=== PATIENT | female | born 1980 | race Caucasian/White ===

== ENCOUNTER → 2018-01-30 | Outpatient (CLI) | payer OTHER | LOC: FIMAGING 10:24 | PROVIDERS: ATTEND Hospitalist | DX: O09.522 Supervision of elderly multigravida, second trimester (principal); Z3A.13 13 weeks gestation of pregnancy ==

== ENCOUNTER → 2018-03-13 | Outpatient (CLI) | payer OTHER | LOC: FIMAGING 09:15 | PROVIDERS: ATTEND Hospitalist | DX: O09.522 Supervision of elderly multigravida, second trimester (principal); Z3A.19 19 weeks gestation of pregnancy ==

== ENCOUNTER 2018-07-29 16:09 | Inpatient (IN) | payer OTHER ==
[2018-07-29] MEDS ORDERED: OLIVE OIL 118 ML BTL MISC PRN (16:44)
[2018-07-29] MEDS ORDERED: LIDOCAINE 1% 300 MG/30 ML SDV SC PRN (16:44)
[2018-07-29] MEDS ORDERED: EPSOM SALT 454 GM TP PRN (16:44)
[2018-07-29] MEDS ORDERED: TERBUTALINE SULFATE 1 MG/ML VIAL IV PRN (16:44)
[2018-07-29] MEDS ORDERED: MISOPROSTOL 200 MCG TAB PR PRN (16:44)
[2018-07-29] MEDS ORDERED: LR 1,000 ML IV PRN (16:44)
[2018-07-29] MEDS ORDERED: IBUPROFEN 600 MG TAB PO PRN (16:44)
[2018-07-29] MEDS ORDERED: OXYTOCIN/RINGERS LACTATE 1,000 ML IV PRN (16:44)
[2018-07-29] MEDS ORDERED: TERBUTALINE SULFATE 1 MG/ML VIAL ONE (17:41)
[2018-07-29] MEDS ORDERED: AMMONIA AROMATIC 1 EACH AMP IH ONE (17:41)
[2018-07-29] MEDS ORDERED: LIDOCAINE 1% 300 MG/30 ML SDV ONE (17:41)
[2018-07-29] MEDS ORDERED: OLIVE OIL 118 ML BTL ONE (17:41)
[2018-07-29] MEDS ORDERED: MISOPROSTOL 200 MCG TAB ONE (17:42)
[2018-07-29] MEDS ORDERED: OXYTOCIN 10 UNIT/ML VIAL ONE (17:42)
[2018-07-29] MEDS ORDERED: HYDROCORTISONE 0.5% CREAM TP PRN (19:05)
[2018-07-29] MEDS ORDERED: SIMETHICONE 80 MG TAB CHEW PO PRN (19:05)
--- NOTE | 2018-07-29 19:06 | PDGENHP ---
History and Physical History and Physical: Care: [facility] HPI: Desirae Rodriguez is a 38yo with IUP @ 38-6 weeks that presents to L&D with complaints of contractions since this afternoon. She denies any LOF, VB. She reports +FM. She is rating pain with contractions 04/01. EDC: 08/06/18 which is based on LMP: 10/30/17 which is known and consistent with Ultrasound at 7 weeks. Her is complicated by: AMA Review of Systems: Constitutional: Denies any fever, chills, or fatigue HEENT: denies any visual changes, difficulty swallowing, hearing loss Cardiovascular: Denies any chest pain, palpitations, leg swelling Respiratory: denies any cough, wheezing, or shortness of breathe GI: Denies any nausea, vomiting, diarrhea, constipation : denies any dysuria, urgency, frequency, vaginal bleeding Musculoskeletal: denies any muscle or bone pain Skin: denies any rashes Neuro: denies any headache, seizures, lightheadedness, dizziness, or loss of consciousness Psychiatric: denies any depression, anxiety, or SI/HI thoughts HISTORY: Previous OB history: EAB Past medical history: none Past surgical history: oral surgery Social: Denies any alcohol, tobacco, or drug use. Family history: Not relevant Medications: PNV, vitamin K, vitamin K, DHA, topical magnesium Allergies (list reaction): NKDA LABS: Rh: A+ ABS: Neg Rubella: Immune HbsAg: NR HIV: NR VDRL: NR 1hr: 73 GC: Neg Chlamydia: Neg Pap: Normal GBS: negative PHYSICAL EXAM: Constitutional: WN, A&Ox3 HEENT: normocephalic atraumatic, supple Skin: Warm, dry, intact Heart: RRR, no murmur Chest: CTA-B Abdomen: Soft, nontender, gravid SVE: 5/90/-2 Extremities: edema, negative homans sign Neuro: grossly normal Psych: normal affect assessment: FHT baseline 135 +accels, no decels, moderate variability Contractions: toco q 2 Assessment: 1) [id number] with IUP@ 38-6wks 2) active labor 3) GBS negative 4) Cat 1 FHR tracing Plan: 1) Admit to L&D 2) expectant management 3) anticipate Today's visit was approximately 30min, of which >50% of visit 20 min, was spent face to face with pt on direct counseling/coordination of care.
--- NOTE | 2018-07-29 19:40 | OBDEL ---
Info Type: Vaginal Presentation at Delivery: Vertex L&D Analgesia/Anesthesia Type: None GBS+: No Intrapartum Medications: Discontinued Medications Generic Name Dose Route Start Last Admin Trade Name Ludy PRN Reason Stop Dose Admin Ibuprofen 600 mg 07/29/18 16:44 07/29/18 19:13 Motrin PO 600 mg ONCE PRN Administration post , pain Indications for Delivery: Spontaneous Labor, SROM Vaginal Delivery - Delivery Provider Delivery Physician/CNM: Daisy Portillo - Labor and Delivery Onset of Contractions Date: 07/29/18 Onset of Contractions Time: 12:00 Onset of Contractions Type: Spontaneous Rupture of Membranes Date: 07/29/18 Rupture of Membranes Type: Spontaneous Amniotic Fluid Color: Clear Dilation Complete Date: 07/29/18 Placenta Delivery Date: 07/29/18 Placenta Delivery Time: 18:38 Total Hours of Labor: 6 Laceration: 2nd Degree Repair: 3-0, Vicryl Vaginal Sponge Count Correct: Yes Vaginal Needle Count Correct: Yes Vaginal Sweep Performed: Yes EBL: 250 Delivery Events: Other (Specify) (body/shoulder cord) Delivery Comment: mom delivered on hands/knees [place] Data MAGGIE: 08/06/18 Gestational Age: 38 week(s) and 6 day(s) [place] Delivery Date: 07/29/18 Delivery Time: 18:21 Sex of : Male Score (1 Min): 8 Score (5 Min): 9 ICD10 Worksheet Patient Problems: Problems Problem Status Onset Labor and delivery, indication for care Acute (spontaneous vaginal delivery) Acute Second degree perineal laceration during delivery Acute - ICD10 Problem Qualifiers (1) Labor and delivery, indication for care (2) (spontaneous vaginal delivery) (3) Second degree perineal laceration during delivery
[2018-07-30] MEDS: DOCUSATE SODIUM 100 MG CAP PO PRN ×3 (01:05→19:38)
[2018-07-30] MEDS: ACETAMINOPHEN 325 MG TAB PO SCH ×5 (01:07→19:39)
[2018-07-30] MEDS: IBUPROFEN 600 MG TAB PO SCH ×4 (01:07→19:38)
--- NOTE | 2018-07-30 12:46 | OBPP ---
Progress Note Assessment/Plan: Assessment: Plan: 07/30/18 12:45 PPD 1 Establishing Subjective/ Course: 07/30/18 12:45 Tired but feeling good. Very happy with experience. Baby had nursed well , now sleepy. coming in soon to help. Pain well controlled with ibuprofen and tylenol Objective: Temp Pulse Resp BP Pulse Ox 36.4 C 80 18 97/55 L 96 07/30/18 10:03 07/30/18 10:03 07/30/18 10:03 07/30/18 10:03 07/30/18 10:03 Nipples intact, breasts soft Uterine Position/Fundal Height: Umbilicus -1 Uterine Tone: Firm
[2018-07-31] MEDS: ACETAMINOPHEN 325 MG TAB PO SCH ×2 (02:07→09:11)
[2018-07-31] MEDS: IBUPROFEN 600 MG TAB PO SCH ×2 (02:08→09:10)
[2018-07-31 09:35] VITALS: BP 103/63
--- NOTE | 2018-07-31 10:40 | OBGCSDC ---
General Delivery Information - General Info : 2 Para: 1 Abortions: 1 Type: Vaginal L&D Analgesia/Anesthesia Type: Nitrous Admission Date: 07/29/18 - Hospital Course : 07/30/18 12:45 Tired but feeling good. Very happy with experience. Baby had nursed well , now sleepy. coming in soon to help. Pain well controlled with ibuprofen and tylenol 07/31/18 10:40 S) Pt doing well, reports min pain and bleeding. she is ambulating and voiding without difficulty. She is . She desires discharge home today. O) VSS, afebrile constitutional: WNWF, A&Ox3 HEENT: normocephalic, atraumatic, supple Heart: RRR, No murmur Chest: CTA-B Abdomen: Soft, nontender Uterus: Firm at U-2 Lochia: Minimal rubra Perineum: Intact, healing well Extremities: Trace edema, and negative Mack's sign Neuro: Grossly normal A) 38 year-old S/P PPD#2 P) Discharge home today Continue Pelvic rest x6wks Discussed danger signs (infection, preeclampsia, depression, heavy bleeding, etc) RTO in 2/4/6 weeks 07/31/18 14:14 Vaginal - Delivery Provider Delivery Physician/CNM: Daisy Portillo - Diagnosis Labor: Spontaneous Rupture of Membranes Type: Spontaneous Amniotic Fluid Color: Clear Laceration: 2nd Degree Repair: 3-0, Vicryl Delivery Events: Other (Specify) (body/shoulder cord) - Delivery EBL: 250 [place] Data MAGGIE: 08/06/18 Gestational Age: 39 week(s) and 1 day(s) [place] Delivery Date: 07/29/18 Delivery Time: 18:21 Sex of Infant: Male Score (1 Min): 8 Score (5 Min): 9 Discharge Information - Discharge Information Prescriptions: Docusate Sodium [Colace 100 MG (*)] 100 mg PO BID PRN #30 cap PRN Reason: Constipation Ibuprofen [Motrin (*)] 600 mg PO Q6H #30 tab Condition: Good
== END 2018-07-31 15:30 | disposition home or self-care (01) | DRG 807 ==
LOC: OBSVTOIN 16:09 → FLD 16:09 → FOB 21:50
PROVIDERS: ADMIT Advanced Practice Midwife; ATTEND Advanced Practice Midwife
PROC: 10E0XZZ Delivery of Products of Conception, External Approach (ICD-10-PCS; principal; 2018-07-29)
PROC: 0KQM0ZZ Repair Perineum Muscle, Open Approach (ICD-10-PCS; principal; 2018-07-29)
DX: O70.1 Second degree perineal laceration during delivery (principal); Z37.0 Single live birth; Z3A.38 38 weeks gestation of pregnancy
CPT/HCPCS: J2590; J3105